=== PATIENT | male | born 1955 | race Caucasian/White ===

== ENCOUNTER 2018-04-13 11:40 | Outpatient (REF) | payer OTHER, SELFPAY ==
[2018-04-13 13:01] LABS: Cholesterol 248 mg/dL (50-200); HDL Cholesterol 58 mg/dL (40-60); LDL CHOLESTEROL 152 mg/dL (<100); Triglyceride 193 mg/dL (30-150)
== END 2018-04-13 12:00 ==
LOC: NCHCN 11:40
PROVIDERS: PCP Nurse Practitioner; Visit Provider Nurse Practitioner
DX: E78.5 Hyperlipidemia, unspecified (principal)
CPT/HCPCS: 80061; 83721